=== PATIENT | female | born 1985 | race Caucasian/White ===

== ENCOUNTER 2017-10-20 22:35 | Emergency (ER) | payer BC ==
[2017-10-20 22:40] VITALS: BMI 40.2
--- NOTE | 2017-10-20 22:53 | DR.GENAD ---
HPI - PCP Primary Care Physician: NFD - HPI Comment HPI Comment: REDNESS WITH CENTER PUSTULAR LESION ON RIGHT UPPER THIGH. INCREASING PAIN AND REDNESS. INCREASE TEMPERATURE AROUND REDNESS. NO FEVER. - Complaint/Symptoms Chief Complaint Doctors Comments: SPIDER BITE TIMES 4 DAYS. Chief Complaint:: PT HAS POSS SPIDER BITE ON BACK OF LOWER RT THIGH X 4 DAYS - Nurses notes reviewed Nurses Notes Review: Yes - Source History Provided: Patient - Mode of Arrival Mode of Arrival: Ambulatory - Timing Onset of Chief Complaint: 10/17/17 Came on: Suddenly - Duration Duration: Constant Duration: Days - Severity Severity: Moderate PMH - PMH Past Medical History: Yes Past Medical History Comment: NEUROPATHY Past Surgical History: Yes Surgical History: Ortho Surgery Past Surgical History Comment: LT WRIST - Family History History of Family Medical Conditions: No - Social History Type of Tobacco Use: None Does any household member use tobacco: No Alcohol Use: None Do you use any recreational Drugs:: No Lives With: Family Lives Where: Home - infectious screening In the last 2 months have you had wt loss of >10#?: NO Have you had fever, night sweats or hemotysis?: No Have you traveled outside the country in the last 6 months?: No Isolation: Standard ROS - Review of Systems Constitutional: No Symptoms Reported. negative: Chills, Fever Eyes: No Symptoms Reported. negative: Eye Pain, Discharge ENTM: No Symptoms Reported. negative: Ear Pain, Nose Discharge, Nose Congestion , Throat Pain Respiratoy: No Symptoms Reported. negative: Short of Breath, Wheezing Cardiovascular: No Symptoms Reported. negative: Chest Pain Gastrointestinal/Abdominal: No Symptoms Reported. negative: Abdominal Pain, Diarrhea, Nausea, Vomiting Genitourinary: No Symptoms Reported. negative: Dysuria, Frequency, Hematuria Neurological: No Symptoms Reported. negative: Headache, Weakness, Dizziness Musculoskeletal: No Symptoms Reported, Muscle Pain Integumentary: Change in Color, Lesions (ABSCESS AND CELLULITIS RIGHT THIGH.) Hematologic/Lymphatic: No Symptoms Reported Endocrine: No Symptoms Reported All Other Systems: Reviewed and Negative PE - Vital Signs Vitals: Temperature 98.4 F Pulse Rate [Left Radial] 72 Pulse Rate 78 Respiratory Rate 18 Blood Pressure [Left Arm] 120/62 Blood Pressure 118/67 O2 Sat by Pulse Oximetry 100 - General Limitations: No Limitations General Appearance: Alert - Head Head Exam: Normal Inspection - Eyes Eye exam: Normal Appearance - ENT ENT Exam: Normal External Ear Exam External Ear Exam: Normal External Inspection TM/Canal Exam: Bilateral Normal Nose Exam: Normal Nose Exam Mouth Exam: Normal Inspection Throat Exam: Normal Inspection - Neck Neck Exam: Trachea Midline - Chest Chest Inspection: Symmetric Chest Wall Rise - Respiratory Respiratory Exam: Normal Lung Sounds Bilat Respiratory Exam: Bilateral Clear to Auscultation - Cardiovascular Cardiovascular Exam: Regular Rate, Normal Rhythm, Normal Heart Sounds - Abdominal Exam Abdominal Exam: Normal Inspection - Extremities Extremities Exam: Tenderness (ABSCESS AND CELLULITIS RT UPPER THIGH.) - Back Back Exam: Normal Inspection - Neurologic Neurological Exam: Alert, Oriented X3 - Psychiatric Psychiatric Exam: Anxious - Skin Skin Exam: Erythema (ABSCESS AND CELLULITIS RT UPPER THIGH.) MDM - Differential Diagnosis Differential Diagnosis: ABSCESS AND CELLULITIS RT UPPER THIGH. Course - Treatment Treatment: SEE ORDERS. I&D DONE IN ED. - Reevaluation 1st: Improved - Education/Counseling Education/Counseling: Patient, Education Educated On: Treatment, Diagnosis, Needs for Follow Up ROR - Labs Reviewed Laboratory: 10/20/17 23:36 Leg - Right Gram Stain - Final Procedures - Incision and Drainage Blade Size: 11 I & D Procedure: betadine prep, gauze wick placed Progress: 2CC PUS DRAIN FROM ABSCESS. CULTURE SPECIMEN OBTAINED. - Diagnosis Discharge Problem: Abscess of left thigh, Cellulitis of left thigh - Discharge Plan Disposition: HOME, SELF-CARE Condition: Stable Prescriptions: Ibuprofen [MOTRIN TAB 800 MG *] 800 mg PO Q8H PRN #30 tab PRN Reason: Pain/Inflammation Sulfamethoxazole-Trimethoprim [BACTRIM DS TAB 800/160 MG *] 1 tab PO Q8H #30 tab - Follow ups/Referrals Follow ups/Referrals: NFD,None [Primary Care Provider] - 3 days - Instructions Instructions: Abscess, [id number], Cellulitis, Adult, [id number] Additional Instructions: RETURN TO ED IF WORSE.
[2017-10-20] MEDS ORDERED: BACTRIM DS TAB PO ONE ×2 (23:22→23:26)
[2017-10-20] MEDS ORDERED: MOTRIN TAB 800 MG PO ONE ×2 (23:23→23:25)
[2017-10-20 23:35] VITALS: BP 120/62
== END 2017-10-20 23:30 | disposition home or self-care (01) ==
LOC: ER 22:52
PROC: 0H9 Skin and Breast, Drainage (ICD-10-PCS; principal; 2017-10-20)
DX: L02.416 Cutaneous abscess of left lower limb (principal); L03.116 Cellulitis of left lower limb
CPT/HCPCS: 10060; 87070; 87075; 87077; 87186; 87205; 99282

== ENCOUNTER 2017-10-22 10:51 | Emergency (ER) | payer BC ==
[2017-10-22 10:57] VITALS: BP 133/74; BMI 40.2
--- NOTE | 2017-10-22 11:08 | DR.GENAD ---
HPI - PCP Primary Care Physician: CLAUDE - HPI Comment HPI Comment: PATIENT SAID SWELLING IS FIRM TODAY. THE PACKING GAUZE IS OFF. NO FEVER. DRAINNAGE IS DECREASING. - Complaint/Symptoms Chief Complaint Doctors Comments: ABSCESS AND CELLULITIS RIGHT THIGH. POST I&D AND IS ON BACTRIM. Chief Complaint:: ABSCESS ON RIGHT LEG. PT. WAS SEEN WEDNESDAY NIGHT AND WAS PLACED ON BACTRIM. AREA IS REDDENED, SWOLLEN, AND DRAINING. - Nurses notes reviewed Nurses Notes Review: Yes - Source History Provided: Patient - Mode of Arrival Mode of Arrival: Ambulatory - Timing Onset of Chief Complaint: 10/17/17 Came on: Suddenly - Duration Duration: Constant Duration: Days - Severity Severity: Moderate PMH - PMH Past Medical History: No Past Surgical History: Yes Surgical History: Ortho Surgery - Family History History of Family Medical Conditions: No - Social History Does patient currently use any type of tobacco product: No Have you used tobacco products in the last 12 months: No Type of Tobacco Use: None Does any household member use tobacco: No Alcohol Use: None Do you use any recreational Drugs:: No Lives With: Family Lives Where: Home - infectious screening In the last 2 months have you had wt loss of >10#?: NO Have you had fever, night sweats or hemotysis?: No Have you traveled outside the country in the last 6 months?: No Isolation: Standard ROS - Review of Systems Constitutional: No Symptoms Reported Eyes: No Symptoms Reported ENTM: No Symptoms Reported Respiratoy: No Symptoms Reported Cardiovascular: No Symptoms Reported Gastrointestinal/Abdominal: No Symptoms Reported Genitourinary: No Symptoms Reported Neurological: No Symptoms Reported Musculoskeletal: Left, Leg Integumentary: Change in Color (REDNESS AND CELLULITIS BACK LOWER LT THIGH. SLIGHT DRANAIGE FRON I&D AREA.) Hematologic/Lymphatic: No Symptoms Reported Endocrine: No Symptoms Reported All Other Systems: Reviewed and Negative PE - Vital Signs Vitals: Temperature 99 F Pulse Rate 84 Respiratory Rate 17 Blood Pressure [Left Arm] 120/62 Blood Pressure 133/74 O2 Sat by Pulse Oximetry 95 - General Limitations: No Limitations General Appearance: Alert, In No Apparent Distress - Head Head Exam: Normal Inspection - Eyes Eye exam: Normal Appearance - ENT ENT Exam: Normal External Ear Exam External Ear Exam: Normal External Inspection TM/Canal Exam: Bilateral Normal Nose Exam: Normal Nose Exam Mouth Exam: Normal Inspection Throat Exam: Normal Inspection - Neck Neck Exam: Normal Inspection - Chest Chest Inspection: Symmetric Chest Wall Rise - Respiratory Respiratory Exam: Normal Lung Sounds Bilat Respiratory Exam: Bilateral Clear to Auscultation - Cardiovascular Cardiovascular Exam: Regular Rate, Normal Rhythm, Normal Heart Sounds - Abdominal Exam Abdominal Exam: Normal Bowel Sounds, Soft. negative: Tenderness - Extremities Extremities Exam: Tenderness (LOWER POST THIGH WITH REDNESS AND DRAINAGE FROM I& D AREA.) - Back Back Exam: Normal Inspection - Neurologic Neurological Exam: Alert, Oriented X3 - Psychiatric Psychiatric Exam: Normal Affect, Normal Mood - Skin Skin Exam: Erythema MDM - Differential Diagnosis Differential Diagnosis: CELLULITIS, ABSCESS Course - Treatment Treatment: SEE ORDERS. - Education/Counseling Education/Counseling: Patient, Education Educated On: Diagnosis, Needs for Follow Up ROR - Labs Reviewed Laboratory Results Reviewed?: Yes Result Diagrams: 10/22/17 11:26 Laboratory: WBC 9.8 X10^3/uL (3.6-10.0) 10/22/17 11:26 RBC 4.17 X10^6/uL (3.5-5.4) 10/22/17 11:26 Hgb 10.9 g/dL (12.0-16.0) L 10/22/17 11:26 Hct 33.1 % (36.0-47.0) L 10/22/17 11:26 MCV 79.3 fL (80.0-100.0) L 10/22/17 11:26 MCH 26.2 pg (27.0-34.0) L 10/22/17 11:26 MCHC 33.1 g/dL (33.0-35.0) 10/22/17 11:26 RDW 14.5 % (11.6-16.5) 10/22/17 11:26 Plt Count 481 X10^3/uL (150.0-450.0) H 10/22/17 11:26 MPV 7.7 fL (7.4-11.0) 10/22/17 11:26 Neut % 66.5 % (42.0-75.0) 10/22/17 11:26 Lymph % 24.0 % (21.0-51.0) 10/22/17 11:26 Elbert % 5.8 % (0.0-13.0) 10/22/17 11:26 Eos % 3.0 % (0.9-2.9) H 10/22/17 11:26 Baso % 0.7 % (0.2-1.0) 10/22/17 11:26 Neut # 6.5 x10^3/uL (2.2-4.8) H 10/22/17 11:26 Lymph # 2.4 X10^3/uL (1.3-2.9) 10/22/17 11:26 Elbert # 0.6 x10^3/uL (0.3-0.8) 10/22/17 11:26 Eos # 0.3 x10^3/uL (0.0-0.2) H 10/22/17 11:26 Baso # 0.1 X10^3/uL (0.0-0.1) 10/22/17 11: Absolute Nucleated RBC 0.0 /100WBC 10/22/17 11:26 - Diagnosis Discharge Problem: Abscess of left thigh, Cellulitis of left thigh - Discharge Plan Disposition: 01 HOME, SELF-CARE Condition: Stable Prescriptions: Doxycycline Monohydrate 100 mg PO BID #20 tablet Ketorolac Tromethamine [Toradol Tab] 10 mg PO Q8H PRN #15 tab PRN Reason: Pain - Follow ups/Referrals Follow ups/Referrals: NFD,None [Primary Care Provider] - 3 days KATY BASURTO [STAFF PHYSICIAN] - 3 days - Instructions Instructions: Abscess, [id number], Cellulitis, Adult, [id number] Additional Instructions: RETURN TO ED IF WORSE.
[2017-10-22] MEDS ORDERED: TORADOL 60 MG VIAL IM ONE (11:10)
[2017-10-22] MEDS ORDERED: TORADOL 60 MG VIAL ONE (11:11)
[2017-10-22 11:31] LABS: BASOPHILS # (AUTO) 0.1 X10^3/uL (0.0-0.1); BASOPHILS % (AUTO) 0.7 % (0.2-1.0); EOSINOPHILS # (AUTO) 0.3 x10^3/uL (0.0-0.2); HEMATOCRIT 33.1 % (36.0-47.0); HEMOGLOBIN 10.9 g/dL (12.0-16.0); LYMPHOCYTES # (AUTO) 2.4 X10^3/uL (1.3-2.9); MEAN CORPUSCULAR HEMOGLOBIN 26.2 pg (27.0-34.0); MEAN CORPUSCULAR HGB CONC 33.1 g/dL (33.0-35.0); MEAN CORPUSCULAR VOLUME 79.3 fL (80.0-100.0); MEAN PLATELET VOLUME 7.7 fL (7.4-11.0); MONOCYTES # (AUTO) 0.6 x10^3/uL (0.3-0.8); MONOCYTES % (AUTO) 5.8 % (0.0-13.0); NEUTROPHILS # (AUTO) 6.5 x10^3/uL (2.2-4.8); NEUTROPHILS % (AUTO) 66.5 % (42.0-75.0); PLATELET COUNT 481 X10^3/uL (150.0-450.0); RED BLOOD COUNT 4.17 X10^6/uL (3.5-5.4); RED CELL DISTRIBUTION WIDTH 14.5 % (11.6-16.5); WHITE BLOOD COUNT 9.8 X10^3/uL (3.6-10.0)
== END 2017-10-22 12:03 | disposition home or self-care (01) ==
LOC: ER 11:00
DX: L02.416 Cutaneous abscess of left lower limb (principal); L03.116 Cellulitis of left lower limb
CPT/HCPCS: 36415; 85025; 96372; 99282; J1885